=== PATIENT | female | born 1975 | race African-American/Black ===

== ENCOUNTER 2017-06-24 01:53 | Emergency (ER) | payer SELFPAY ==
[~2017-06-24] VITALS: Ht 160 cm; Wt 86.2 kg
[~2017-06-24 01:53] MED LIST: ATEN50TA8 PO
[2017-06-24 01:57] VITALS: BP 146/76
--- NOTE | 2017-06-24 02:50 | NUR ---
PATIENT LEFT WITHOUT BEING SEEN BY DR. HERCULES. NO FURTHER CARE PROVIDED FOR PATIENT.
== END 2017-06-24 02:50 | disposition left against medical advice (07) ==
LOC: MED 01:53
DX: R10.9 Unspecified abdominal pain (principal); Z53.21 Procedure and treatment not carried out due to patient leaving prior to being seen by health care provider